=== PATIENT | male | born 1990 | race Caucasian/White ===

== ENCOUNTER → 2022-10-12 | Outpatient (CLI) | payer BC ==
[2022-10-12 11:27] LABS: Basophils # (auto) 0 10 ^3/uL (0-0.2); Basophils % (auto) 0.3 % (0.0-2.0); Eosinophils # (auto) 0.2 10 ^3/uL (0-0.8); Eosinophils % (auto) 2.6 % (0.0-7.0); Hemoglobin 15.9 g/dL (13.5-17.5); Lymphocytes # (auto) 2.7 10 ^3/uL (0.4-5.4); Mean Corpuscular Hemoglobin 29.8 pg (28.0-32.0); Mean Corpuscular Hgb Conc. 33.7 g/dL (32.0-36.0); Mean Corpuscular Volume 88.3 fL (80.0-100.0); Monocytes # (auto) 0.3 10 ^3/uL (0-1.3); Monocytes % (auto) 5.2 % (0.0-12.0); Neutrophils # (auto) 3.3 10 ^3/uL (1.6-8.6); Neutrophils % (auto) 49.9 % (37.0-80.0); Nucleated Red Blood Cells % 0.1 %; Red Blood Cells 5.32 10^6/uL (4.5-5.90); Red Cell Distribution Width 13.3 % (11.8-14.3); White Blood Cell 6.5 10^3/uL (4.4-10.8)
[2022-10-12 12:13] LABS: Alanine Aminotransferase 88 U/L (7-40); Albumin 4.5 g/dL (3.2-4.8); Alkaline Phosphatase 63 U/L (46-116); Anion Gap 6.7 (5-15); Aspartate Aminotransferase 38 U/L (13-40); Calcium 9.4 mg/dL (8.5-10.1); Carbon Dioxide 23.3 mmol/L (20-30); Chloride 105 mmol/L (98-107); Cholesterol 248 mg/dL (< 200); Glucose 271 mg/dL (74-106); Potassium 3.6 mmol/L (3.5-5.1); Sodium 135 mmol/L (136-145)
[2022-10-12 12:14] LABS: HDL Cholesterol 22 mg/dL (40-59)
[2022-10-12 12:17] LABS: Triglycerides 439 mg/dL (< 150)
[2022-10-12 12:18] LABS: BUN/Creatinine Ratio 6.7 (10.0-20.0); Blood Urea Nitrogen 6 mg/dL (9-23)
[2022-10-12 12:20] LABS: Bilirubin, Total 0.8 mg/dL (0.2-1.0)
[2022-10-12 12:36] LABS: Prostate Specific Antigen 0.27 ng/mL (0.0-4.0)
[2022-10-12 12:40] LABS: Free T4 (Free Thyroxine) 1.36 ng/dL (0.89-1.76)
[2022-10-12 12:41] LABS: Total Protein 7.6 g/dL (5.7-8.2)
== END | disposition home or self-care (01) ==
LOC: LAB 10:38
DX: E66.01 Morbid (severe) obesity due to excess calories (principal); R63.1 Polydipsia; R35.1 Nocturia
CPT/HCPCS: 36415; 80053; 80061; 83036; 84153; 84439; 84443; 85025

== ENCOUNTER 2023-09-20 11:47 | Emergency (ER) | payer BC ==
[~2023-09-20] VITALS: Ht 177.8 cm; Wt 121.9 kg
[2023-09-20 12:37] LABS: Basophils # (auto) 0 10 ^3/uL (0-0.2); Basophils % (auto) 0.6 % (0.0-2.0); Eosinophils # (auto) 0.2 10 ^3/uL (0-0.8); Eosinophils % (auto) 3.5 % (0.0-7.0); Hematocrit 49.4 % (41.0-53.0); Hemoglobin 17.3 g/dL (13.5-17.5); Lymphocytes # (auto) 2.4 10 ^3/uL (0.4-5.4); Lymphocytes % (auto) 36.7 % (10.0-50.0); Mean Corpuscular Hemoglobin 31.6 pg (28.0-32.0); Mean Corpuscular Volume 90.2 fL (80.0-100.0); Monocytes # (auto) 0.4 10 ^3/uL (0-1.3); Monocytes % (auto) 6.7 % (0.0-12.0); Neutrophils # (auto) 3.5 10 ^3/uL (1.6-8.6); Neutrophils % (auto) 52.5 % (37.0-80.0); Nucleated Red Blood Cells % 0.3 %; Red Blood Cells 5.47 10^6/uL (4.5-5.90); Red Cell Distribution Width 13.5 % (11.8-14.3); White Blood Cell 6.6 10^3/uL (4.4-10.8)
[2023-09-20] MEDS: ONDANSETRON ODT 4 MG TAB PO ONE (12:47)
[2023-09-20] MEDS: PANTOPRAZOLE 40 MG TAB PO ONE (12:47)
[2023-09-20 12:57] LABS: Alanine Aminotransferase 153 U/L (7-40); Albumin 4.4 g/dL (3.2-4.8); Alkaline Phosphatase 56 U/L (46-116); Anion Gap 8 (5-15); Aspartate Aminotransferase 64 U/L (13-40); BUN/Creatinine Ratio 9.6 (10.0-20.0); Blood Urea Nitrogen 8 mg/dL (9-23); Calcium 9.4 mg/dL (8.7-10.4); Carbon Dioxide 24 mmol/L (20-30); Chloride 107 mmol/L (98-107); Glucose 105 mg/dL (74-106); Lipase 73 U/L (12-53); Sodium 139 mmol/L (136-145)
[2023-09-20 12:58] LABS: Bilirubin, Total 0.4 mg/dL (0.2-1.0); Total Protein 7.9 g/dL (5.7-8.2)
[2023-09-20 13:30] LABS: Urine Bacteria None Seen /hpf (None Seen)
[2023-09-20 13:44] LABS: Urine Blood Negative /uL (Negative); Urine Clarity Clear (Clear); Urine Color Light-Yellow (Yellow); Urine Mucus FEW (None Seen); Urine Protein, UAD TRACE (Negative); Urine Specific Gravity 1.022 (1.001-1.035); Urine Urobilinogen Normal (Negative); Urine WBC <1 /hpf (0 - 3)
[2023-09-20] MEDS ORDERED: ZOFR4T PO (13:50)
[2023-09-20] MEDS ORDERED: PANT40TA2 PO (13:50)
[2023-09-20 14:10] VITALS: BP 145/93; PULSE 77; RESP 16; TEMP 98; O2SAT 98
== END 2023-09-20 14:12 | disposition home or self-care (01) ==
LOC: ER 11:47
DX: K21.9 Gastro-esophageal reflux disease without esophagitis (principal); R74.8 Abnormal levels of other serum enzymes; R16.1 Splenomegaly, not elsewhere classified; E11.9 Type 2 diabetes mellitus without complications; I10 Essential (primary) hypertension; F17.210 Nicotine dependence, cigarettes, uncomplicated; F12.90 Cannabis use, unspecified, uncomplicated
CPT/HCPCS: 36415; 74176; 80053; 81001; 83690; 85025; 99284; Q0162

== ENCOUNTER 2024-01-10 11:12 | Emergency (ER) | payer BC ==
[~2024-01-10] VITALS: Ht 180.3 cm; Wt 128.4 kg
[~2024-01-10 11:12] MED LIST: PANT40TA2 PO; ZOFR4T PO
--- NOTE | 2024-01-10 11:30 | ED.PDOC ---
History of Present Illness HPI Comments 33-year-old male presents with a chief complaint of flank pain and muscle pain x onset yesterday. Patient states that his pain originally started in his left shoulder, was sharp in nature, and radiates around his back to his right flank. Patient denies twisting or bending prior to onset of symptoms. Patient mentions that he has never had a kidney stone before in the past. Patient reports he takes medication for his DM and HTN and is compliant. No other symptoms or modifying factors present at this time. Time Seen by MD: 11:22 Reviewed Notes: Nurses Notes, Medications, Allergies Allergies: Coded Allergies: NO KNOWN ALLERGIES (Unverified , 09/20/23) Home Meds Active Scripts Hydrocodone-Acetaminophen (Hydrocodone Bitartrate/AC 5-325 mg) 1 Tab Tab, 1 TAB PO Q8HP PRN for 5 Days, #15 TAB Prov:CHRIS MENJIVAR MD 01/10/24 Ondansetron Odt 4MG Tab (ZOFRAN PO) 4 Mg Tb, 4 MG PO Q8HP PRN for 5 Days, #15 TAB ODT TAB-DISSOLVE IN MOUTH, THEN SWALLOW Prov:CHRIS MENJIVAR MD 09/20/23 Pantoprazole Sodium Sesquihydr (Protonix) 40 Mg Tab, 40 MG PO DAILY, #30 TAB Prov:CHRIS MENJIVAR MD 09/20/23 Information Source: Patient Mode of Arrival: Ambulatory Severity: Moderate Timing: Hours Duration: Since onset Prehospital treatment: None Past Medical History PAST MEDICAL HISTORY: DM, HTN Past Medical History (Other): Sleep Apnea Surgical History: Denies all surgeries Family History Family History: Reviewed,noncontributory to illness, Family hx of DM, Family hx of HTN Social History Smoker: Cigarettes Alcohol: Occasionally Drugs: Marijuana Lives In: Home Constitutional: denies: chills, diaphoresis, fatigue, fever, malaise, sweats, weakness, others EENTM: denies: blurred vision, double vision, ear bleeding, ear discharge, ear drainage, ear pain, ear ringing, eye pain, eye redness, hearing loss, mouth pain, mouth swelling, nasal discharge, nose bleeding, nose congestion, nose pain, photophobia, tearing, throat pain, throat swelling, voice changes, others Respiratory: denies: cough, hemoptysis, orthopnea, SOB at rest, shortness of breath, SOB with excertion, stridor, wheezing, others Cardiovascular: denies: chest pain, dizzy spells, diaphoresis, Dyspnea on exert ion, edema, irregular heart beat, left arm pain, lightheadedness, palpitations, PND, syncope, others Gastrointestinal: denies: abdomen distended, abdominal pain, blood streaked bowels, constipated, diarrhea, dysphagia, difficulty swallowing, hematemesis, melena, nausea, poor appetite, poor fluid intake, rectal bleeding, rectal pain, vomiting, others Genitourinary: reports: flank pain; denies: burning, dysuria, frequency, hematuria, incontinence, penile discharge, penile sore, pain, testicle pain, testicle swelling, urgency, others Neurological: denies: dizziness, fainting, headache, left sided numbness, left sided weakness, numbness, paresthesia, pre-existing deficit, right sided numbness, right sided weakness, seizure, speech problems, tingling, tremors, weakness, others Musculoskeletal: reports: muscle pain; denies: back pain, gout, joint pain, joint swelling, muscle stiffness, neck pain, others Integumetry: denies: bruises, change in color, change in hair/nails, dryness, laceration, lesions, lumps, rash, wounds, others Allergic/Immunocompromised: denies: Difficulty Healing, Frequent Infections, Hives, Itching, others Hematologic/Lymphatic: denies: anemia, blood clots, easy bleeding, easy br uising, swollen glands, others Endocrine: denies: excessive hunger, excessive sweating, excessive thirst, excessive urination, flushing, intolerance to cold, intolerance to heat, unexplained weight gain, unexplained weight loss, others Psychiatric: denies: anxiety, bipolar disorder, depression, hopeless, panic disorder, schizophrenia, sleepless, suicidal, others All Other Systems: Reviewed and Negative Physical Exam General Appearance: No Apparent Distress HEENT: Normal ENT Inspection, Pharynx Normal, TMs Normal Neck: Full Range of Motion, Non-Tender, Normal, Normal Inspection Respiratory: Chest Non-Tender, Lungs Clear, No Accessory Muscle Use, No Respiratory Distress, Normal Breath Sounds Cardiovascular: No Edema, No JVD, No Murmur, No Gallop, Normal Peripheral Pulses, Regular Rate/Rhythm Breast Exam: Deferred Gastrointestinal: No Organomegaly, Non Tender, No Pulsatile Mass, Normal Bowel Sounds, Soft Genitalia: Deferred Pelvic: Deferred Rectal: Deferred Extremities: No calf tenderness, Normal capillary refill, Normal inspection, Normal range of motion, Non-tender, No pedal edema Musculoskeletal : Apperance: Normal Neurologic: Alert, repair order clerk II-XII nml as Tested, No Motor Deficits, Normal Affect, Normal Mood, No Sensory Deficits Cerebellar Function: Normal Reflexes: Normal Skin: Dry, Normal Color, Warm Lymphatic: No Adenopathy Was a procedure done? Was a procedure done?: No Differential Dx Considerations may include: Kidney stones, appendicitis, UTI X-Ray, Labs, Meds, VS Vital Signs Date Time Temp Pulse Resp B/P (MAP) Pulse Ox O2 Delivery O2 Flow Rate FiO2 01/10/24 12:02 98.7 99 17 146/99 (115) 96 98.7 01/10/24 12:02 99 17 01/10/24 11:29 98.0 96 16 146/88 (107) 97 Lab Test 01/10/24 11:41 01/10/24 11:25 Range/Units White Blood Count 11.1 H 4.4-10.8 10^3/uL Red Blood Count 5.75 4.5-5.90 10^6/uL Hemoglobin 18.0 H 13.5-17.5 g/dL Hematocrit 51.8 41.0-53.0 % Mean Corpuscular Volume 90.0 80.0-100.0 fL Mean Corpuscular Hemoglobin 31.3 28.0-32.0 pg Mean Corpuscular Hemoglobin Concent 34.7 32.0-36.0 g/dL Red Cell Distribution Width 13.6 11.8-14.3 % Platelet Count 255 140-450 10^3/uL Mean Platelet Volume 8.2 6.9-10.8 fL Neutrophils (%) (Auto) 66.4 37.0-80.0 % Lymphocytes (%) (Auto) 25.0 10.0-50.0 % Monocytes (%) (Auto) 5.2 0.0-12.0 % Eosinophils (%) (Auto) 3.0 0.0-7.0 % Basophils (%) (Auto) 0.4 0.0-2.0 % Neutrophils # (Auto) 7.3 1.6-8.6 10 ^3/uL Lymphocytes # (Auto) 2.8 0.4-5.4 10 ^3/uL Monocytes # (Auto) 0.6 0-1.3 10 ^3/uL Eosinophils # (Auto) 0.3 0-0.8 10 ^3/uL Basophils # (Auto) 0 0-0.2 10 ^3/uL Nucleated Red Blood Cells 0.2 % Sodium Level 136 136-145 mmol/L Potassium Level 3.9 3.5-5.1 mmol/L Chloride Level 102 98-107 mmol/L Carbon Dioxide Level 28 20-31 mmol/L Anion Gap 6 5-15 Blood Urea Nitrogen 13 9-23 mg/dL Creatinine 1.09 0.700-1.30 mg/dL Glomerular Filtration Rate Calc 91 >90 mL/min BUN/Creatinine Ratio 11.9 10.0-20.0 Serum Glucose 232 H 74-106 mg/dL Calcium Level 11.1 H 8.7-10.4 mg/dL Urine Color Yellow Yellow Urine Clarity Clear Clear Urine pH 5.5 5.0-9.0 Urine Specific [place] 1.034 1.001-1.035 Urine Protein 1+ H Negative Urine Ketones Negative Negative Urine Blood Negative Negative /uL Urine Nitrite Negative Negative Urine Bilirubin Negative Negative Urine Urobilinogen Normal Negative mg/dL Urine Leukocyte Esterase Negative Negative /uL Urine RBC <1 0 - 3 /hpf Urine WBC 2 0 - 3 /hpf Urine Squamous Epithelial Cells None seen <5 /hpf Urine Bacteria None seen None Seen /hpf Urine Mucus Few None Seen Urine Glucose 3+ H Normal mg/dL Current Medications Medications (Trade) Dose Ordered Sig/Claudette Route Start Time Stop Time Status Last Admin Sodium Chloride 1,000 ml @ 1,000 mls/hr Q1H ONCE IVB 01/10/24 12:45 01/10/24 13:44 01/10/24 12:41 Ketorolac Tromethamine (Toradol Injection) 30 mg ONCE ONCE IV 01/10/24 12:45 01/10/24 12:46 DC 01/10/24 12:51 Abdomen/Pelvis CT Scan Impression: 1. Hepatic steatosis. 2. Hazy/adeline appearance of the central mesentery with scattered mesenteric lymph nodes. These findings can be seen with mesenteric panniculitis versus sclerosing mesenteritis. The CBC shows an elevated white blood cell count of 11.1 The rest of the CBC is within normal limits At this time, the patient has a urine test which is negative The patient was given ketorolac 30 mg IV push The patient was given an IV Hep-Lock and was given a normal saline bolus The patient was being discharged The patient will return to the emergency department's condition worsens. Images Reviewed?: Images reviewed and evaluated by me Time of 1ST Reevaluation: 11:52 Reevaluation 1ST: Unchanged Patient Education/Counseling: Diagnosis, Treatment, Prognosis, Need For Follow Up Family Education/Counseling: No Family Present Departure 1 Departure Time of Disposition: 13:08 Impression: Primary Impression: Musculoskeletal pain Disposition: 01 HOME / SELF CARE / HOMELESS Condition: Fair e-Prescriptions Hydrocodone-Acetaminophen (Hydrocodone Bitartrate/AC 5-325 mg) 1 Tab Tab 1 TAB PO Q8HP PRN for 5 Days, #15 TAB Prov: CHRIS MENJIVAR MD 01/10/24 Discharged With: Self Critical Care Note Critical Care Time?: No Stability Stability form required: No Heart Score Heart Score: Heart Score Response (Comments) Value History N/A 0 EKG N/A 0 Age N/A 0 Risk Factors N/A 0 Troponin N/A 0 Total 0 I personally scribed for CHRIS MENJIVAR MD ([email or web address]) on 01/10/24 at 11:30. Electronically submitted by Anam Reyes ([email or web address]). I personally scribed for CHRIS MENJIVAR MD ([email or web address]) on 01/10/24 at 12:19. Electronically submitted by Anam Reyes ([email or web address]). CHRIS MENJIVAR MD Jan 10, 2024 11:30
[2024-01-10 11:51] LABS: Basophils # (auto) 0 10 ^3/uL (0-0.2); Eosinophils # (auto) 0.3 10 ^3/uL (0-0.8); Monocytes # (auto) 0.6 10 ^3/uL (0-1.3)
[2024-01-10 11:53] LABS: Basophils % (auto) 0.4 % (0.0-2.0); Hematocrit 51.8 % (41.0-53.0); Lymphocytes # (auto) 2.8 10 ^3/uL (0.4-5.4); Mean Corpuscular Hemoglobin 31.3 pg (28.0-32.0); Mean Corpuscular Hgb Conc. 34.7 g/dL (32.0-36.0); Monocytes % (auto) 5.2 % (0.0-12.0); Neutrophils # (auto) 7.3 10 ^3/uL (1.6-8.6); Neutrophils % (auto) 66.4 % (37.0-80.0); Nucleated Red Blood Cells % 0.2 %; Platelet Count (auto) 255 10^3/uL (140-450); Red Blood Cells 5.75 10^6/uL (4.5-5.90); Red Cell Distribution Width 13.6 % (11.8-14.3); White Blood Cell 11.1 10^3/uL (4.4-10.8)
--- NOTE | 2024-01-10 11:58 | DVH ---
CT ABDOMEN AND PELVIS WITHOUT CONTRAST CLINICAL HISTORY: right flank pain TECHNIQUE: Multiple contiguous axial images of the abdomen and pelvis without intravenous contrast. The images were reformatted degenerate coronal and sagittal reconstructions. All CT scans at this medical facility are performed using dose modulation techniques as appropriate t o a performed exam including the following:Automated exposure control was utilized; adjustment of the MA and/or KV according to patient size; and use of iterative reconstruction technique. Radiation Dose Information: CT Dose: CTDI volume is 24.34 mGy. Dose-length product is 1655.71 mGy*cm Comparison: CT CT AB PEL WO CON-NO ORAL OR IV on DOS: 09/20/23 FINDINGS: Evaluation of the abdomen and pelvis is limited without intravenous contrast. There is diffuse fatty infiltration of the liver. The gallbladder, pancreas, kidneys, adrenal glan ds, and spleen appear within normal limits. There is hazy appearance of the central mesentery with scattered mesenteric lymph nodes. There is no significant retroperitoneal lymphadenopathy. There is no free fluid or free air. The stomach grossly appears unremarkable. The small and large bowel loops demonstrate normal caliber . The abdominal aorta and IVC appear within normal limits. The bladder appears unremarkable for the degree of distention. Pelvic organ appears within normal rodrigues its. There is no gross evidence of a pelvic mass. There is no free fluid collection. Lung bases are clear. There is no acute osseous abnormality. IMPRESSION: 1. Hepatic steatosis. 2. Hazy/adeline appearance of the central mesentery with scattered mesenteric lymph nodes. These findin gs can be seen with mesenteric panniculitis versus sclerosing mesenteritis. HS:Y
[2024-01-10 11:59] LABS: Chloride 102 mmol/L (98-107); Potassium 3.9 mmol/L (3.5-5.1); Sodium 136 mmol/L (136-145)
[2024-01-10 12:00] LABS: Anion Gap 6 (5-15); Carbon Dioxide 28 mmol/L (20-31)
[2024-01-10 12:05] LABS: BUN/Creatinine Ratio 11.9 (10.0-20.0); Blood Urea Nitrogen 13 mg/dL (9-23)
[2024-01-10 12:08] LABS: Calcium 11.1 mg/dL (8.7-10.4); Glucose 232 mg/dL (74-106)
[2024-01-10 12:22] LABS: Urine Bacteria None Seen /hpf (None Seen)
[2024-01-10 12:39] LABS: Urine Blood Negative /uL (Negative); Urine Clarity Clear (Clear); Urine Color Yellow (Yellow); Urine Mucus FEW (None Seen); Urine Protein, UAD 1+ (Negative); Urine Specific Gravity 1.034 (1.001-1.035); Urine Urobilinogen Normal (Negative); Urine WBC 2 /hpf (0 - 3); Urine pH 5.5 (5.0-9.0)
[2024-01-10] MEDS: SODIUM CHLORIDE 0.9% 1,000 ML IVB ONE (12:41)
[2024-01-10] MEDS: KETOROLAC TROMETH 30 MG/ML 1ML VIAL IV ONE (12:51)
[2024-01-10] MEDS ORDERED: HYDR-4902 PO (13:06)
[2024-01-10 13:23] VITALS: BP 147/94; PULSE 89; RESP 16; TEMP 97.9; O2SAT 95
== END 2024-01-10 13:30 | disposition home or self-care (01) ==
LOC: ER 11:12
DX: R10.9 Unspecified abdominal pain (principal); M79.10 Myalgia, unspecified site; I10 Essential (primary) hypertension; E11.9 Type 2 diabetes mellitus without complications; F17.210 Nicotine dependence, cigarettes, uncomplicated; F15.90 Other stimulant use, unspecified, uncomplicated; Z79.899 Other long term (current) drug therapy
CPT/HCPCS: 36415; 74176; 80048; 81001; 85025; 96361; 96374; 99285; J1885; J7030

== ENCOUNTER 2024-01-20 21:02 | Inpatient (IN) | payer BC ==
[~2024-01-20] VITALS: Ht 180.3 cm; Wt 121.7 kg
[~2024-01-20 21:02] MED LIST changes: +HYDR-4902 PO
[2024-01-20 21:32] LABS: Urine Bacteria None Seen /hpf (None Seen)
--- NOTE | 2024-01-20 21:57 | ED.PDOC ---
History of Present Illness HPI Comments 33 y/o M, with a Hx of uncontrolled HTN and obesity, presents with c/o abdominal pain, headache, and HTN, today. Patient is a poor historian and endorses on having unprovoked onset of constant abdominal pain for the past "few days," with additional onset of headache, today. Upon arrival to ED, patient was found hypertensive at a blood pressure of 175/114, with patient reporting not taking any medications for his blood pressure, currently. Patient denies any recent injuries, sick contact, travel, substance use/exposure, or spoiled food intake. He also reports being here 1x week ago for unknown reason in addition to unknown Dx. He denies having any nausea, vomiting, dizziness, vision or speech changes, fever, chills, or other associated symptoms or modifiers at this time. Chief Complaint: Abdominal Pain Time Seen by MD: 21:10 Primary Care Provider: FAHAD Reviewed Notes: Nurses Notes, Medications, Allergies Allergies: Coded Allergies: NO KNOWN ALLERGIES (Unverified , 09/20/23) Home Meds Active Scripts Hydrocodone-Acetaminophen (Hydrocodone Bitartrate/AC 5-325 mg) 1 Tab Tab, 1 TAB PO Q8HP PRN for 5 Days, #15 TAB Prov:CHRIS MENJIVAR MD 01/10/24 Ondansetron Odt 4MG Tab (ZOFRAN PO) 4 Mg Tb, 4 MG PO Q8HP PRN for 5 Days, #15 TAB ODT TAB-DISSOLVE IN MOUTH, THEN SWALLOW Prov:CHRIS MENJIVAR MD 09/20/23 Pantoprazole Sodium Sesquihydr (Protonix) 40 Mg Tab, 40 MG PO DAILY, #30 TAB Prov:CHRIS MENJIVAR MD 09/20/23 Information Source: Patient Mode of Arrival: Ambulatory Severity: Moderate Timing: Days Duration: Since onset Prehospital treatment: None Past Medical History PAST MEDICAL HISTORY: DM, HTN Surgical History: Denies all surgeries Family History Family History: Reviewed,noncontributory to illness, Family hx of DM, Family hx of HTN Social History Smoker: Cigarettes Alcohol: Occasionally Drugs: Marijuana Lives In: Home Constitutional: reports: weakness; denies: chills, diaphoresis, fatigue, fever, malaise, sweats, others EENTM: denies: blurred vision, double vision, ear bleeding, ear discharge, ear drainage, ear pain, ear ringing, eye pain, eye redness, hearing loss, mouth pain, mouth swelling, nasal discharge, nose bleeding, nose congestion, nose pain, photophobia, tearing, throat pain, throat swelling, voice changes, others Respiratory: denies: cough, hemoptysis, orthopnea, SOB at rest, shortness of breath, SOB with excertion, stridor, wheezing, others Cardiovascular: denies: chest pain, dizzy spells, diaphoresis, Dyspnea on exertion, edema, irregular heart beat, left arm pain, lightheadedness, palpitations, PND, syncope, others Gastrointestinal: reports: abdominal pain; denies: abdomen distended, blood streaked bowels, constipated, diarrhea, dysphagia, difficulty swallowing, hemate mesis, melena, nausea, poor appetite, poor fluid intake, rectal bleeding, rectal pain, vomiting, others Genitourinary: denies: burning, dysuria, flank pain, frequency, hematuria, incontinence, penile discharge, penile sore, pain, testicle pain, testicle swelling, urgency, others Neurological: reports: dizziness, headache; denies: fainting, left sided numbness, left sided weakness, numbness, paresthesia, pre-existing deficit, right sided numbness, right sided weakness, seizure, speech problems, tingling, tremors, weakness, others Musculoskeletal: denies: back pain, gout, joint pain, joint swelling, muscle pain, muscle stiffness, neck pain, others Integumetry: denies: bruises, change in color, change in hair/nails, dryness, laceration, lesions, lumps, rash, wounds, others Allergic/Immunocompromised: denies: Difficulty Healing, Frequent Infections, Hives, Itching, others Hematologic/Lymphatic: denies: anemia, blood clots, easy bleeding, easy bruising, swollen glands, others Endocrine: denies: excessive hunger, excessive sweating, excessive thirst, excessive urination, flushing, intolerance to cold, intolerance to heat, unexplained weight gain, unexplained weight loss, others Psychiatric: denies: anxiety, bipolar disorder, depression, hopeless, panic disorder, schizophrenia, sleepless, suicidal, others Physical Exam General Appearance: Moderate Distress (Due to belly pain concerns.), Obese HEENT: Normal ENT Inspection, Pharynx Normal, TMs Normal Neck: Full Range of Motion, Non-Tender, Normal, Normal Inspection Respiratory: Chest Non-Tender, Lungs Clear, No Accessory Muscle Use, No Respiratory Distress, Normal Breath Sounds Cardiovascular: No Edema, No JVD, No Murmur, No Gallop, Normal Peripheral Pulses, Regular Rate/Rhythm Breast Exam: Deferred Gastrointestinal: Other (Diffuse epigastric tenderness to palpation bilaterally. Abdomen was moderately rigid. No pulsatile masses. No signs of trauma.) Genitalia: Deferred Pelvic: Deferred Rectal: Deferred Extremities: No calf tenderness, Normal capillary refill, Normal inspection, Normal range of motion, Non-tender, No pedal edema Neurologic: Alert, No Motor Deficits, Normal Affect, Normal Mood, No Sensory Deficits Cerebellar Function: Normal Reflexes: Normal Skin: Dry, Normal Color, Warm Lymphatic: No Adenopathy Was a procedure done? Was a procedure done?: No Differential Dx Considerations may include: Hypertensive urgency, pancreatitis, SBO, hepatic steatosis, gastroenteritis, UTI X-Ray, Labs, Meds, VS Vital Signs Date Time Temp Pulse Resp B/P (MAP) Pulse Ox O2 Delivery O2 Flow Rate FiO2 01/21/24 00:44 79 18 143/93 (110) 99 01/21/24 00:37 91 01/20/24 21:05 98.3 91 18 175/114 (134) 96 Lab Test 01/20/24 21:27 01/20/24 21:18 Range/Units White Blood Count 7.1 4.4-10.8 10^3/uL Red Blood Count 5.26 4.5-5.90 10^6/uL Hemoglobin 16.3 13.5-17.5 g/dL Hematocrit 48.1 41.0-53.0 % Mean Corpuscular Volume 91.5 80.0-100.0 fL Mean Corpuscular Hemoglobin 31.1 28.0-32.0 pg Mean Corpuscular Hemoglobin Concent 33.9 32.0-36.0 g/dL Red Cell Distribution Width 13.7 11.8-14.3 % Platelet Count 218 140-450 10^3/uL Mean Platelet Volume 8.3 6.9-10.8 fL Neutrophils (%) (Auto) 54.9 37.0-80.0 % Lymphocytes (%) (Auto) 32.8 10.0-50.0 % Monocytes (%) (Auto) 7.6 0.0-12.0 % Eosinophils (%) (Auto) 4.3 0.0-7.0 % Basophils (%) (Auto) 0.4 0.0-2.0 % Neutrophils # (Auto) 3.9 1.6-8.6 10 ^3/uL Lymphocytes # (Auto) 2.3 0.4-5.4 10 ^3/uL Monocytes # (Auto) 0.5 0-1.3 10 ^3/uL Eosinophils # (Auto) 0.3 0-0.8 10 ^3/uL Basophils # (Auto) 0 0-0.2 10 ^3/uL Nucleated Red Blood Cells 0.1 % Sodium Level 139 136-145 mmol/L Potassium Level 3.7 3.5-5.1 mmol/L Chloride Level 103 98-107 mmol/L Carbon Dioxide Level 28 20-31 mmol/L Anion Gap 8 5-15 Blood Urea Nitrogen 14 9-23 mg/dL Creatinine 1.04 0.700-1.30 mg/dL Glomerular Filtration Rate Calc 97 >90 mL/min BUN/Creatinine Ratio 13.5 10.0-20.0 Serum Glucose 178 H 74-106 mg/dL Lactic Acid Level 1.2 0.4-2.0 mmol/L Calcium Level 10.0 8.7-10.4 mg/dL Total Bilirubin 0.3 0.2-1.0 mg/dL Aspartate Amino Transferase (AST) 101 H 13-40 U/L Alanine Aminotransferase (ALT) 238 H 7-40 U/L Alkaline Phosphatase 79 46-116 U/L Troponin I High Sensitivity < 3 L </=54 ng/L Total Protein 7.8 5.7-8.2 g/dL Albumin 4.7 3.2-4.8 g/dL Lipase 110 H 12-53 U/L Urine Color Yellow Yellow Urine Clarity Clear Clear Urine pH 5.5 5.0-9.0 Urine Specific [place] 1.039 H 1.001-1.035 Urine Protein 1+ H Negative Urine Ketones Trace Negative Urine Blood Negative Negative /uL Urine Nitrite Negative Negative Urine Bilirubin Negative Negative Urine Urobilinogen Normal Negative mg/dL Urine Leukocyte Esterase Negative Negative /uL Urine RBC 1 0 - 3 /hpf Urine WBC 1 0 - 3 /hpf Urine Squamous Epithelial Cells None seen <5 /hpf Urine Calcium Oxalate Crystals Few None Seen Urine Bacteria None seen None Seen /hpf Urine Mucus Few None Seen Urine Glucose 1+ H Normal mg/dL X-Ray, Labs, Meds, VS Comment All studies performed the ED today were evaluated by me personally. EKG revealed a sinus rhythm with a rate of 87, borderline T-wave abnormalities and borderline ST elevation on lateral leads. GA interval of 168 and QT interval of 352. Troponins were unremarkable for any acute cardiac event. Laboratories st udies remarkable for a significant elevated lipase national sales representative of pancreatitis. CT of abdomen and pelvis showed a mesenteric adenitis as well as hepatomegaly and splenomegaly. Patient will be admitted for his pancreatitis concerns as well as cardiac evaluations due to his currently uncontrolled hypertension. Time of 1ST Reevaluation: 00:14 Reevaluation 1ST: Improved Consultation: PCP Patient Education/Counseling: Diagnosis, Treatment Family Education/Counseling: Diagnosis, Treatment, No Family Present Departure 1 Departure Time of Disposition: 00:15 Impression: Primary Impression: Acute pancreatitis Additional Impressions: Mesenteric adenitis Hypertensive urgency Hepatomegaly Splenomegaly Disposition: 09 ADMITTED INPATIENT Condition: Stable Discharged With: Self, Friend Critical Care Note Critical Care Time?: No Stability Stability form required: No Heart Score Heart Score: Heart Score Response (Comments) Value History Slightly Suspicious 0 EKG Repolarization Disturb 1 Age <45 0 Risk Factors 1 or 2 risk factors 1 Troponin N/A 0 Total 2 I personally scribed for ANTHONY CHEN PAC ([email or web address]) on 01/20/24 at 21:57. Electronically submitted by Noe Akers ([email or web address]). ANTHONY CHEN PAC Jan 20, 2024 21:57
[2024-01-20 22:01] LABS: Urine Blood Negative /uL (Negative); Urine Clarity Clear (Clear); Urine Color Yellow (Yellow); Urine Mucus FEW (None Seen); Urine Protein, UAD 1+ (Negative); Urine Specific Gravity 1.039 (1.001-1.035); Urine Urobilinogen Normal (Negative); Urine WBC 1 /hpf (0 - 3); Urine pH 5.5 (5.0-9.0)
[2024-01-20 22:13] LABS: Basophils # (auto) 0 10 ^3/uL (0-0.2); Basophils % (auto) 0.4 % (0.0-2.0); Eosinophils # (auto) 0.3 10 ^3/uL (0-0.8); Eosinophils % (auto) 4.3 % (0.0-7.0); Hematocrit 48.1 % (41.0-53.0); Hemoglobin 16.3 g/dL (13.5-17.5); Lymphocytes # (auto) 2.3 10 ^3/uL (0.4-5.4); Lymphocytes % (auto) 32.8 % (10.0-50.0); Mean Corpuscular Hemoglobin 31.1 pg (28.0-32.0); Mean Corpuscular Hgb Conc. 33.9 g/dL (32.0-36.0); Mean Corpuscular Volume 91.5 fL (80.0-100.0); Monocytes # (auto) 0.5 10 ^3/uL (0-1.3); Monocytes % (auto) 7.6 % (0.0-12.0); Neutrophils # (auto) 3.9 10 ^3/uL (1.6-8.6); Neutrophils % (auto) 54.9 % (37.0-80.0); Nucleated Red Blood Cells % 0.1 %; Platelet Count (auto) 218 10^3/uL (140-450); Red Blood Cells 5.26 10^6/uL (4.5-5.90); Red Cell Distribution Width 13.7 % (11.8-14.3); White Blood Cell 7.1 10^3/uL (4.4-10.8)
[2024-01-20 22:29] LABS: Albumin 4.7 g/dL (3.2-4.8); Alkaline Phosphatase 79 U/L (46-116); Anion Gap 8 (5-15); BUN/Creatinine Ratio 13.5 (10.0-20.0); Bilirubin, Total 0.3 mg/dL (0.2-1.0); Blood Urea Nitrogen 14 mg/dL (9-23); Carbon Dioxide 28 mmol/L (20-31); Chloride 103 mmol/L (98-107); Potassium 3.7 mmol/L (3.5-5.1); Sodium 139 mmol/L (136-145); Total Protein 7.8 g/dL (5.7-8.2)
[2024-01-20 22:31] LABS: Alanine Aminotransferase 238 U/L (7-40); Aspartate Aminotransferase 101 U/L (13-40); Glucose 178 mg/dL (74-106); Lipase 110 U/L (12-53)
--- NOTE | 2024-01-20 23:01 | DVH ---
CLINICAL HISTORY: Diffuse abdominal pain TECHNIQUE: CT of the abdomen and pelvis was performed without intravenous contrast. This exam was per formed according to our departmental dose optimization program. Up-to-date CT equipment and radiation dose reduction techniques are utilized as appropriate. WID: COMPARISON: CT CT AB PEL WO CON-NO ORAL OR IV on DOS: 01/10/24 FINDINGS: Lower Thorax: Sub 5 mm right lower lobe nodule along the right major fissure. Normal-sized heart Liver and Biliary system: Hepatomegaly measuring 24 cm craniocaudal, with moderate hepatic steatosis. Otherwise unremarkable Spleen: Splenomegaly. Adrenal Glands and Kidneys: Pancreas and Retroperitoneum: Unremarkable. Aorta and Major Vessels: Unremarkable. Bowel, Mesentery and Peritoneal space: Mildly enlarged central mesenteric lymph nodes. Mild soft tiss ue stranding about the central mesentery. Normal appendix. Normal caliber small and large bowel. Ther e is no free air or fluid collection. Pelvis: Unremarkable. Abdominal wall and Osseous Structures: Mild lower thoracic and lumbar spondylosis. No destructive oss eous lesion. IMPRESSION: 1. Mild soft tissue stranding of the central mesentery with mildly enlarged central mesenteric lymph nodes which could reflect mesenteric panniculitis. 2. Hepatomegaly with moderate hepatic steatosis. 3. Splenomegaly
[2024-01-21] MEDS ORDERED: cloNIDine HCL 0.1 MG TAB PO PRN (03:00)
[2024-01-21] MEDS ORDERED: ACETAMINOPHEN 325 MG TAB PO PRN (03:00)
[2024-01-21] MEDS ORDERED: DEXTROSE (50%) 50ML SYRG IV PRN (03:00)
[2024-01-21] MEDS ORDERED: DOCUSATE SOD 100 MG CAP PO PRN (03:00)
--- NOTE | 2024-01-21 03:44 | DVHHP2 ---
History of Present Illness Reason for Visit: Acute pancreatitis History of Present Illness The patient is a 33-year-old male morbidly obese with past medical history of diabetes mellitus and hypertension who presented to [facility] ED with complaint of abdominal pain. Patient reports symptoms progressively get wor se with constant abdominal pain, rating 7/10 numeric scale, associated headache, getting worse that prompted this visit. Patient was seen and evaluated in the ED hypertensive, blood pressure 175/114 trending down to 143/93, denied taking any medication for blood pressure, heart rate 86, temperature 98.3 F, O2 saturation 99% on room air. Laboratory data shows WBC 7.1, platelets 218, sodium 139, potassium 3.7, BUN 14, creatinine 1.04, glucose 178, AST 101, ALT 238, troponin 3, lipase 110. Abdomen/pelvis CT revealing splenomegaly, hepatomegaly with moderate hepatic steatosis, mild soft tissue stranding of the central mesentery with mildly enlarged central mesenteric lymph nodes which could reflect mesenteric pancreatitis. Patient was given IV Dilaudid 1 mg x 1, given IV fluid, please see medication orders section in the computer. On my assessment, patient denied chest pain, no headache, no dizziness, no diaphoresis, no shortness of breath, no nausea, no vomiting, no fever, no chills. Patient was admitted for further evaluation and medical management. Past Medical History DM, HTN Past Surgical History Denies all surgeries Family History Reviewed, noncontributory to the management of this case. Past Social History Patient lives at home, smokes cigarettes, drinks alcohol occasionally, uses marijuana. Review of Systems Constitutional: Yes: Weakness; No: Fever, Chills, Sweats, Malaise, Other Eyes: No: Pain, Vision change, Conjunctivae inflammation, Eyelid inflammation, Other, Redness ENT: No: Ear pain, Ear discharge, Nose pain, Nose discharge, Nose congestion, Mouth pain, Mouth swelling, Throat pain, Throat swelling, Other Respiratory: No: Cough, Dry, Shortness of breath, SOB with excertion, Wheezing, Hemoptysis, Pleuritic Pain, Sputum, Wheezing, Other Cardiovascular: No: Chest Pain, Palpitations, Orthopnea, Paroxysmal Noc. Dyspnea, Edema, Lt Headedness, Other Gastrointestinal: Abdominal Pain; No: Nausea, Vomiting, Diarrhea, Constipation, Melena, Hematochezia, Other Genitourinary: No Dysuria, No Frequency, No Incontinence, No Hematuria, No Retention, No Other Musculoskeletal: No: other, neck pain, shoulder pain, arm pain, back pain, hand pain, leg pain, foot pain Skin: No: Rash, Lesions, Jaundice, Bruising, Other Neurological: Other (Headache, dizziness.); No: Weakness, Numbness, Incoordination, Change in speech, Confusion, Seizures Allergies: Coded Allergies: NO KNOWN ALLERGIES (Unverified , 09/20/23) Medications Current Medications Medications Dose Ordered Sig/Claudette Route Start Time Stop Time Status Last Admin Dose Admin Hydromorphone HCl 1 mg Q4HPRN PRN IV 01/21/24 03:00 Clonidine HCl 0.1 mg Q4HP PRN PO 01/21/24 03:00 Metoprolol Tartrate 25 mg BID PO 01/21/24 10:00 Ibuprofen 600 mg Q6HP PRN PO 01/21/24 03:00 UNV Diagnostic Test (Pha) 1 strip ACHS 01/21/24 07:00 Insulin Human Regular HS SC 01/21/24 22:00 Insulin Human Regular AC SC 01/21/24 07:00 Dextrose 50 ml UD PRN IV 01/21/24 03:00 Sodium Chloride 1,000 ml @ 120 mls/hr Q8H20M IV 01/21/24 03:00 Acetaminophen/ Hydrocodone Bitart 1 tab Q4HP PRN PO 01/21/24 03:00 Ondansetron HCl 4 mg Q4HP PRN IV 01/21/24 03:00 Docusate Sodium 100 mg BIDPRN PRN PO 01/21/24 03:00 Acetaminophen 650 mg Q6HP PRN PO 01/21/24 03:00 Pantoprazole Sodium 40 mg DAILY IV 01/21/24 10:00 Exam Vital Signs Vital Signs Date Time Temp Pulse Resp B/P (MAP) Pulse Ox O2 Delivery O2 Flow Rate FiO2 01/21/24 01:54 87 01/21/24 00:44 18 143/93 (110) 99 01/20/24 21:05 98.3 General Appearance: Alert, Oriented X3, Cooperative, No acute distress HEENT: Atraumatic, PERRLA, EOMI, Mucous membr. moist/pink Respiratory: Clear to auscultation, Normal air movement Cardiovascular: Regular rate, Normal S1, Normal S2, No murmurs Abdominal: Normal bowel sounds, Soft, No hepatospenomegaly, No masses, Other (Reports tenderness) Extremities: No clubbing, No cyanosis, No edema, Normal pulses, No tenderness/swelling Skin: No rashes, No breakdown, No significant lesion Neuro: Normal gait, Normal speech, Strength at 5/5 X4 ext, Normal tone, Sensation intact, Cranial nerves 3-12 NL, Reflexes 2+ Psych/Mental Status: Mental status NL, Mood NL Labs/Xrays Labs Test 01/20/24 21:27 01/20/24 21:18 Range/Units White Blood Count 7.1 4.4-10.8 10^3/uL Red Blood Count 5.26 4.5-5.90 10^6/uL Hemoglobin 16.3 13.5-17.5 g/dL Hematocrit 48.1 41.0-53.0 % Mean Corpuscular Volume 91.5 80.0-100.0 fL Mean Corpuscular Hemoglobin 31.1 28.0-32.0 pg Mean Corpuscular Hemoglobin Concent 33.9 32.0-36.0 g/dL Red Cell Distribution Width 13.7 11.8-14.3 % Platelet Count 218 140-450 10^3/uL Mean Platelet Volume 8.3 6.9-10.8 fL Neutrophils (%) (Auto) 54.9 37.0-80.0 % Lymphocytes (%) (Auto) 32.8 10.0-50.0 % Monocytes (%) (Auto) 7.6 0.0-12.0 % Eosinophils (%) (Auto) 4.3 0.0-7.0 % Basophils (%) (Auto) 0.4 0.0-2.0 % Neutrophils # (Auto) 3.9 1.6-8.6 10 ^3/uL Lymphocytes # (Auto) 2.3 0.4-5.4 10 ^3/uL Monocytes # (Auto) 0.5 0-1.3 10 ^3/uL Eosinophils # (Auto) 0.3 0-0.8 10 ^3/uL Basophils # (Auto) 0 0-0.2 10 ^3/uL Nucleated Red Blood Cells 0.1 % Sodium Level 139 136-145 mmol/L Potassium Level 3.7 3.5-5.1 mmol/L Chloride Level 103 98-107 mmol/L Carbon Dioxide Level 28 20-31 mmol/L Anion Gap 8 5-15 Blood Urea Nitrogen 14 9-23 mg/dL Creatinine 1.04 0.700-1.30 mg/dL Glomerular Filtration Rate Calc 97 >90 mL/min BUN/Creatinine Ratio 13.5 10.0-20.0 Serum Glucose 178 H 74-106 mg/dL Lactic Acid Level 1.2 0.4-2.0 mmol/L Calcium Level 10.0 8.7-10.4 mg/dL Total Bilirubin 0.3 0.2-1.0 mg/dL Aspartate Amino Transferase (AST) 101 H 13-40 U/L Alanine Aminotransferase (ALT) 238 H 7-40 U/L Alkaline Phosphatase 79 46-116 U/L Troponin I High Sensitivity < 3 L </=54 ng/L Total Protein 7.8 5.7-8.2 g/dL Albumin 4.7 3.2-4.8 g/dL Lipase 110 H 12-53 U/L Urine Color Yellow Yellow Urine Clarity Clear Clear Urine pH 5.5 5.0-9.0 Urine Specific [place] 1.039 H 1.001-1.035 Urine Protein 1+ H Negative Urine Ketones Trace Negative Urine Blood Negative Negative /uL Urine Nitrite Negative Negative Urine Bilirubin Negative Negative Urine Urobilinogen Normal Negative mg/dL Urine Leukocyte Esterase Negative Negative /uL Urine RBC 1 0 - 3 /hpf Urine WBC 1 0 - 3 /hpf Urine Squamous Epithelial Cells None seen <5 /hpf Urine Calcium Oxalate Crystals Few None Seen Urine Bacteria None seen None Seen /hpf Urine Mucus Few None Seen Urine Glucose 1+ H Normal mg/dL [id number] UNIT: [id number] : 1990 LOC: ER ROOM / BED: / AGE / SEX: 33 / M ADM STATUS: REG ER SERVICE 17 ORDERING PHYSICIAN: ANTHONY CHEN PAC PROCEDURE(s): ABPL - CT AB PEL WO CON-NO ORAL OR IV REASON: Diffuse abdominal pain ORDER NUMBER(s): [id number], ACCESSION NUMBER(s): [id number] CLINICAL HISTORY: Diffuse abdominal pain TECHNIQUE: CT of the abdomen and pelvis was performed without intravenous contrast. This exam was performed according to our departmental dose optimization program. Up-to-date CT equipment and radiation dose reduction techniques are utilized as appropriate. WID: COMPARISON: CT CT AB PEL WO CON-NO ORAL OR IV on DOS: 01/10/24 FINDINGS: Lower Thorax: Sub 5 mm right lower lobe nodule along the right major fissure. Normal-sized heart Liver and Biliary system: Hepatomegaly measuring 24 cm craniocaudal, with moderate hepatic steatosis. Otherwise unremarkable Spleen: Splenomegaly. Adrenal Glands and Kidneys: Pancreas and Retroperitoneum: Unremarkable. Aorta and Major Vessels: Unremarkable. Bowel, Mesentery and Peritoneal space: Mildly enlarged central mesenteric lymph nodes. Mild soft tissue stranding about the central mesentery. Normal appendix. Normal caliber small and large bowel. There is no free air or fluid collection. Pelvis: Unremarkable. Abdominal wall and Osseous Structures: Mild lower thoracic and lumbar spondylosis. No destructive osseous lesion. IMPRESSION: 1. Mild soft tissue stranding of the central mesentery with mildly enlarged central mesenteric lymph nodes which could reflect mesenteric panniculitis. 2. Hepatomegaly with moderate hepatic steatosis. 3. Splenomegaly Assessment/Plan Assessment/Plan Acute pancreatitis Mesenteric adenitis Hypertensive urgency Hepatomegaly Splenomegaly Acute abdominal pain Elevated liver enzymes Plan 1. Admit to med surge unit 2. Breathing treatment 3. Pain control management 4. Management of fluids and electrolytes 5. Consultation for hospitalist 6. Diagnostic tests abdomen/pelvis CT 7. DVT prophylaxis on SCDs 8. Repeat labs CBC, CMP in a.m. 9. Continue with current medical management 10. Treatment plan discussed with patient and RN. Patient verbalized understanding. Plan discussed with: Patient, Other (RN) My Orders Orders - FREDDY EDWARDS DNP Procedure Category Date Status Time Complete Blood Count LAB 01/21/24 Logged 04:00 Comprehensive LAB 01/21/24 Logged Metabolic Panel 04:00 Hydromorphone PHA 01/21/24 In Process Injection (Dilaudid 03:00 Clonidine Hcl Tablet PHA 01/21/24 In Process (Catapres Tablet) 03:00 Metoprolol Tartrate PHA 01/21/24 In Process Tablet (Lopressor Ta 10:00 * Gi D[facility] Head Wet Process CONS 01/21/24 Transmitted 02:54 Ibuprofen Tablet PHA 01/21/24 Pending (Motrin Tablet) 03:00 Consistent DIET 01/21/24 Transmitted Carb(Ccho)Diabetes Breakfast Glucose Blood PHA 01/21/24 In Process (Accu-Chek Comfort 07:00 Insulin R (Human) PHA 01/21/24 In Process (Insulin R) 22:00 Insulin R (Human) PHA 01/21/24 In Process (Insulin R) 07:00 Dextrose 50% Syringe PHA 01/21/24 In Process 03:00 Allergies SUSSY 01/21/24 In Process 02:54 Code Status CODE 01/21/24 Transmitted 02:54 Sodium Chloride 0.9% PHA 01/21/24 In Process 03:00 Oxygen Per Hour RT 01/21/24 Transmitted 02:54 Hydrocodone-Acet PHA 01/21/24 In Process 5/325mg Tab ([place] 03:00 Ondansetron Hcl PHA 01/21/24 In Process (Zofran) 03:00 Docusate Sodium PHA 01/21/24 In Process Capsule (Colace 03:00 Complete Blood Count LAB 01/22/24 Verified 04:00 Comprehensive LAB 01/22/24 Verified Metabolic Panel 04:00 Condition: Serious SUSSY 01/21/24 In Process 02:54 Acetaminophen Tablet PHA 01/21/24 In Process (Tylenol Tablet) 03:00 Clear Liq Diet DIET 01/21/24 Transmitted Breakfast Bedrest With Bathroom SUSSY 01/21/24 In Process Privileg 02:54 Sequential SUSSY 01/21/24 In Process Compression Device Pantoprazole PHA 01/21/24 In Process (Protonix) 10:00 Admit ADMIT 01/21/24 Verified 03:42 Nitroglycerin [facility] 01/21/24 Verified Sublingual (Ntrostat 03:45 Morphine Sulfate PHA 01/21/24 Verified Injection 03:45 Notify Md Of Changes [facility] 01/21/24 Verified From Base 03:42 Emergency Dysrhythmia [facility] 01/21/24 Verified Protocol 03:42 Oxygen By Nasal RT 01/21/24 Verified Cannula 03:42 Problem List: (1) Acute pancreatitis (2) Splenomegaly (3) Hepatomegaly (4) Hypertensive urgency (5) Acute abdominal pain (6) Mesenteric adenitis (7) Elevated liver enzymes Date of Service: Jan 21, 2024 Billing Provider: FREDDY EDWARDS DNP Common Visit Codes: [id number] INP/OBS CARE (HIGH) FREDDY EDWARDS DNP Jan 21, 2024 03:44
[2024-01-21] MEDS ORDERED: MORPHINE SULFATE INJ 2 MG/ml SYRG IV PRN (03:45)
[2024-01-21] MEDS ORDERED: NITROGLYCERIN 0.4 MG SL TAB SL PRN (03:45)
[2024-01-21 04:00] VITALS: PULSE 79; RESP 18; O2SAT 95
[2024-01-21] MEDS: cloNIDine HCL 0.1 MG TAB PO ONE (04:22)
[2024-01-21] MEDS: ONDANSETRON ODT 4 MG TAB PO ONE (04:22)
[2024-01-21] MEDS: HYDROmorphone HCL 2 MG/ML VL/or syr IM ONE (04:22)
[2024-01-21] MEDS: ONDANSETRON HCL 4 MG/2 ML VIAL IV PRN (04:25)
[2024-01-21] MEDS: HYDROmorphone HCL 2 MG/ML VL/or syr IV PRN (04:26)
[2024-01-21] MEDS: SODIUM CHLORIDE 0.9% 1,000 ML IV SCH (04:34)
[2024-01-21] MEDS: InsuLIN REG 1unit/0.01ml Soln (100units/ml) SC SCH ×2 (06:46→21:57)
[2024-01-21] MEDS: ACCU-CHEK COMFORT CURVE STRIP VI SCH (06:46)
[2024-01-21 09:39] LABS: Basophils # (auto) 0 10 ^3/uL (0-0.2); Basophils % (auto) 0.3 % (0.0-2.0); Eosinophils # (auto) 0.3 10 ^3/uL (0-0.8); Eosinophils % (auto) 4.8 % (0.0-7.0); Hematocrit 47.5 % (41.0-53.0); Hemoglobin 16.5 g/dL (13.5-17.5); Lymphocytes # (auto) 2.3 10 ^3/uL (0.4-5.4); Lymphocytes % (auto) 36.7 % (10.0-50.0); Mean Corpuscular Hemoglobin 31.4 pg (28.0-32.0); Mean Corpuscular Hgb Conc. 34.7 g/dL (32.0-36.0); Mean Corpuscular Volume 90.6 fL (80.0-100.0); Monocytes # (auto) 0.4 10 ^3/uL (0-1.3); Monocytes % (auto) 7.2 % (0.0-12.0); Neutrophils # (auto) 3.2 10 ^3/uL (1.6-8.6); Nucleated Red Blood Cells % 0.1 %; Platelet Count (auto) 204 10^3/uL (140-450); Red Blood Cells 5.25 10^6/uL (4.5-5.90); Red Cell Distribution Width 13.7 % (11.8-14.3); White Blood Cell 6.2 10^3/uL (4.4-10.8)
[2024-01-21] MEDS: IBUPROFEN 600 MG TAB PO PRN (09:40)
[2024-01-21 09:43] VITALS: PULSE 72; RESP 17; O2SAT 97
[2024-01-21 09:58] LABS: Albumin 4.7 g/dL (3.2-4.8); Alkaline Phosphatase 69 U/L (46-116); Anion Gap 6 (5-15); BUN/Creatinine Ratio 14.5 (10.0-20.0); Blood Urea Nitrogen 12 mg/dL (9-23); Carbon Dioxide 28 mmol/L (20-31); Chloride 105 mmol/L (98-107); Sodium 139 mmol/L (136-145)
[2024-01-21 09:59] LABS: Bilirubin, Total 0.5 mg/dL (0.2-1.0); Total Protein 7.8 g/dL (5.7-8.2)
[2024-01-21 10:00] LABS: Alanine Aminotransferase 260 U/L (7-40); Aspartate Aminotransferase 119 U/L (13-40); Glucose 116 mg/dL (74-106)
[2024-01-21] MEDS: PANTOPRAZOLE 40 MG/10 ML VIAL INJ IV SCH (10:24)
[2024-01-21] MEDS: METOPROLOL TARTRATE 25 MG TAB PO SCH (11:06)
--- NOTE | 2024-01-21 12:56 | DVHPN2 ---
Reviewed: Care Plan, H&P, Labs, Medications, Previous Orders, Radiology Changes from previous H/P or p: No Changes Eyes: No Pain, No Vision change, No Conjunctivae inflammation, No Eyelid inflammation, No Other, No Redness ENT: No Ear pain, No Ear discharge, No Nose pain, No Nose discharge, No Nose congestion, No Mouth pain, No Mouth swelling, No Throat pain, No Throat swelling, No Other Cardiovascular: No Chest Pain, No Palpitations, No Orthopnea, No Paroxysmal Noc. Dyspnea, No Edema, No Lt Headedness, No Other Respiratory: No Cough, No Dry, No Shortness of breath, No SOB with excertion, No Wheezing, No Hemoptysis, No Pleuritic Pain, No Sputum, No Other Gastrointestinal: No Nausea, No Vomiting; Abdominal Pain; No Diarrhea, No Constipation, No Melena, No Hematochezia, No Other Genitourinary: No Dysuria, No Frequency, No Incontinence, No Hematuria, No Retention, No Other Musculoskeletal: No other, No neck pain, No shoulder pain, No arm pain, No back pain, No hand pain, No leg pain, No foot pain Skin: No Rash, No Lesions, No Jaundice, No Bruising, No Other Objective Vitals Vital Signs Date Time Temp Pulse Resp B/P (MAP) Pulse Ox O2 Delivery O2 Flow Rate FiO2 01/21/24 11:55 61 128/83 01/21/24 11:07 17 97 01/21/24 11:01 98.3 01/21/24 09:43 Room Air* 0 21 Medications Current Medications Medications Dose Ordered Sig/Claudette Route Start Time Stop Time Status Last Admin Dose Admin Hydromorphone HCl 1 mg Q4HPRN PRN IV 01/21/24 03:00 01/21/24 04:26 1 MG Clonidine HCl 0.1 mg Q4HP PRN PO 01/21/24 03:00 Metoprolol Tartrate 25 mg BID PO 01/21/24 10:00 01/21/24 11:06 25 MG Ibuprofen 600 mg Q6HP PRN PO 01/21/24 03:00 01/21/24 09:40 600 MG Diagnostic Test (Pha) 1 strip ACHS 01/21/24 07:00 01/21/24 06:46 1 STRIP Insulin Human Regular HS SC 01/21/24 22:00 Insulin Human Regular AC SC 01/21/24 07:00 01/21/24 11:30 2 UNITS Dextrose 50 ml UD PRN IV 01/21/24 03:00 Sodium Chloride 1,000 ml @ 120 mls/hr Q8H20M IV 01/21/24 03:00 01/21/24 11:21 120 MLS/HR Acetaminophen/ Hydrocodone Bitart 1 tab Q4HP PRN PO 01/21/24 03:00 Ondansetron HCl 4 mg Q4HP PRN IV 01/21/24 03:00 01/21/24 04:25 4 MG Docusate Sodium 100 mg BIDPRN PRN PO 01/21/24 03:00 Pantoprazole Sodium 40 mg DAILY IV 01/21/24 10:00 01/21/24 10:24 40 MG Nitroglycerin 0.4 mg Q5MINP PRN SL 01/21/24 03:45 Morphine Sulfate 2 mg Q30M PRN IV 01/21/24 03:45 Laboratory Results Laboratory Tests 01/21/24 08:53 Chemistry Test 01/20/24 21:27 01/21/24 08:53 Albumin 4.7 g/dL (3.2-4.8) 4.7 g/dL (3.2-4.8) Calcium Level 10.0 mg/dL (8.7-10.4) 10.0 mg/dL (8.7-10.4) Total Protein 7.8 g/dL (5.7-8.2) 7.8 g/dL (5.7-8.2) Lipid panel Test 01/20/24 21:27 Lipase 110 U/L (12-53) H LFT Test 01/20/24 21:27 01/21/24 08:53 Alanine Aminotransferase (ALT) 238 U/L (7-40) H 260 U/L (7-40) H Alkaline Phosphatase 79 U/L (46-116) 69 U/L (46-116) Aspartate Amino Transferase (AST) 101 U/L (13-40) H 119 U/L (13-40) H Total Bilirubin 0.3 mg/dL (0.2-1.0) 0.5 mg/dL (0.2-1.0) Urinalysis Test 01/20/24 21:18 Urine Color Yellow (Yellow) Urine Clarity Clear (Clear) Urine pH 5.5 (5.0-9.0) Urine Specific [place] 1.039 (1.001-1.035) Urine Protein 1+ (Negative) H Urine Ketones Trace (Negative) Urine Blood Negative /uL (Negative) Urine Nitrite Negative (Negative) Urine Bilirubin Negative (Negative) Urine Urobilinogen Normal mg/dL (Negative) Urine Leukocyte Esterase Negative /uL (Negative) Urine RBC 1 /hpf (0 - 3) Urine WBC 1 /hpf (0 - 3) Urine Squamous Epithelial Cells None seen /hpf (<5) Urine Calcium Oxalate Crystals Few (None Seen) Urine Bacteria None seen /hpf (None Seen) Urine Mucus Few (None Seen) Urine Glucose 1+ mg/dL (Normal) H Labs and/or images reviewed: Labs reviewed by me, Image(s) reviewed by me Assessment/Plan Assessment/Plan Acute abdominal pain Acute pancreatitis lipase 110 Hepatomegaly: Gallbladder ultrasound Elevated liver enzymes: Hepatitis panel, GI consult for Dr. Campbell Diabetes Hypertension Time spent 40 minutes Patient is full code Advanced care planning time 20 minutes Plan discussed with: Patient My Orders Orders - ANTONY RODRIGUEZ MD Procedure Category Date Status Time Gallbladder US 01/21/24 Logged 12:52 Comprehensive LAB 01/21/24 Transmitted Hepatitis Panel 12:53 Date of Service: Jan 21, 2024 Billing Provider: ANTONY RODRIGUEZ MD Common Visit Codes: [id number] INP/OBS CARE(HIGH) Secondary Visit Codes: [id number] CARE PLAN 30 MINUTES ANTONY RODRIGUEZ MD Jan 21, 2024 12:56
--- NOTE | 2024-01-21 13:32 | DVHINCON2 ---
Date of service: Jan 21, [address] Sullivan Reason for Consultation Severe abdominal pain radiating to the back History of Present Illness This 33-year-old male presented with complaints of abdominal pain which was sharp in the epigastric area and periumbilically radiating to the back He was in the ER three days ago for the same problem and few hours and then was sent home the details of which he can not remember patient has history of obesity diabetes and hypertension Patient's liver enzymes were found to be high Done without any contrast showed that there was mildly enlarged mesenteric lymph nodes and soft tissue stranding stranding about the central mesentery normal appendix normal pancreas any gallbladder and liver except for some mild hepatomegaly Mild nausea but no hematemesis or melena Past Medical History Diabetes hypertension mild obesity Past Surgical History None Family History Noncontributory Social History Some social drinking and smoking uses marijuana Allergies: Coded Allergies: NO KNOWN ALLERGIES (Unverified , 09/20/23) Home Meds Active Scripts Hydrocodone-Acetaminophen (Hydrocodone Bitartrate/AC 5-325 mg) 1 Tab Tab, 1 TAB PO Q8HP PRN for 5 Days, #15 TAB Prov:CHRIS MENJIVAR MD 01/10/24 Ondansetron Odt 4MG Tab (ZOFRAN PO) 4 Mg Tb, 4 MG PO Q8HP PRN for 5 Days, #15 TAB ODT TAB-DISSOLVE IN MOUTH, THEN SWALLOW Prov:CHRIS MENJIVAR MD 09/20/23 Pantoprazole Sodium Sesquihydr (Protonix) 40 Mg Tab, 40 MG PO DAILY, #30 TAB Prov:CHRIS MENJIVAR MD 09/20/23 Current Medications Current Medications Medications (Trade) Dose Ordered Sig/Claudette Route PRN Reason Start Time Stop Time Status Last Admin Hydromorphone HCl (Dilaudid Injection) 1 mg Q4HPRN PRN IV SEVERE PAIN (7-10 PAIN SCALE) 01/21/24 03:00 01/21/24 04:26 Clonidine HCl (Catapres Tablet) 0.1 mg Q4HP PRN PO SBP>150 01/21/24 03:00 Metoprolol Tartrate (Lopressor Tablet) 25 mg BID PO 01/21/24 10:00 01/21/24 11:06 Ibuprofen (Motrin Tablet) 600 mg Q6HP PRN PO PAIN SCALE 1-3 OR TEMP>100.4 01/21/24 03:00 01/21/24 09:40 Diagnostic Test (Pha) (Accu-Chek Comfort Curve T) 1 strip ACHS 01/21/24 07:00 01/21/24 06:46 Insulin Human Regular (InsuLIN R) HS SC 01/21/24 22:00 Insulin Human Regular (InsuLIN R) AC SC 01/21/24 07:00 01/21/24 11:30 Dextrose 50 ml UD PRN IV Blood Sugar LESS THAN 60 01/21/24 03:00 Sodium Chloride 1,000 ml @ 120 mls/hr Q8H20M IV 01/21/24 03:00 01/21/24 11:21 Acetaminophen/ Hydrocodone Bitart ([place] 5/325MG Tab) 1 tab Q4HP PRN PO MODERATE PAIN (4-6 PAIN SCALE) 01/21/24 03:00 Ondansetron HCl (Zofran) 4 mg Q4HP PRN IV NAUSEA / VOMITING 01/21/24 03:00 01/21/24 04:25 Docusate Sodium (Colace Capsule) 100 mg BIDPRN PRN PO FOR CONSTIPATION 01/21/24 03:00 Acetaminophen (Tylenol Tablet) 650 mg Q6HP PRN PO PAIN SCALE 1-3 OR TEMP>100.4 01/21/24 03:00 01/21/24 05:37 DC Pantoprazole Sodium (Protonix) 40 mg DAILY IV 01/21/24 10:00 01/21/24 10:24 Nitroglycerin (Ntrostat Sublingual) 0.4 mg Q5MINP PRN SL FOR CHEST PAIN 01/21/24 03:45 Morphine Sulfate 2 mg Q30M PRN IV FOR CHEST PAIN 01/21/24 03:45 Review of Systems Noncontributory Vital Signs Vital Signs Date Time Temp Pulse Resp B/P (MAP) Pulse Ox O2 Delivery O2 Flow Rate FiO2 01/21/24 13:02 97.7 73 16 134/65 (88) 97 97.7 01/21/24 09:43 Room Air* 0 21 Physical Exam Moderately built and nourished slightly on the obese side male in no acute distress but uncomfortable from the pain Vitals stable HEENT exam no pallor no icterus Neck is supple no lymphadenopathy no thyromegaly Lungs clear Cardiovascular unremarkable Abdomen soft slightly on the obese side Mild tenderness in the epigastrium and periumbilically no rigidity no guarding no masses Extremities unremarkable Neuro grossly intact Labs AST 101 ALT 238 alkaline phosphatase normal BUN is 14 creatinine is 1.04 lipase is increased to [address] showed moderate steatosis of the liver hepatomegaly splenomegaly and some nonspecific mesenteric lymphadenitis Labs/Diagnostic Data Labs Test 01/21/24 11:24 01/21/24 08:53 01/20/24 21:27 01/20/24 21:18 Range/Units POC Glucose 139 H 70-106 mg/dl White Blood Count 6.2 4.4-10.8 10^3/uL Red Blood Count 5.25 4.5-5.90 10^6/uL Hemoglobin 16.5 13.5-17.5 g/dL Hematocrit 47.5 41.0-53.0 % Mean Corpuscular Volume 90.6 80.0-100.0 fL Mean Corpuscular Hemoglobin 31.4 28.0-32.0 pg Mean Corpuscular Hemoglobin Concent 34.7 32.0-36.0 g/dL Red Cell Distribution Width 13.7 11.8-14.3 % Platelet Count 204 140-450 10^3/uL Mean Platelet Volume 8.4 6.9-10.8 fL Neutrophils (%) (Auto) 51.0 37.0-80.0 % Lymphocytes (%) (Auto) 36.7 10.0-50.0 % Monocytes (%) (Auto) 7.2 0.0-12.0 % Eosinophils (%) (Auto) 4.8 0.0-7.0 % Basophils (%) (Auto) 0.3 0.0-2.0 % Neutrophils # (Auto) 3.2 1.6-8.6 10 ^3/uL Lymphocytes # (Auto) 2.3 0.4-5.4 10 ^3/uL Monocytes # (Auto) 0.4 0-1.3 10 ^3/uL Eosinophils # (Auto) 0.3 0-0.8 10 ^3/uL Basophils # (Auto) 0 0-0.2 10 ^3/uL Nucleated Red Blood Cells 0.1 % Sodium Level 139 136-145 mmol/L Potassium Level 4.0 3.5-5.1 mmol/L Chloride Level 105 98-107 mmol/L Carbon Dioxide Level 28 20-31 mmol/L Anion Gap 6 5-15 Blood Urea Nitrogen 12 9-23 mg/dL Creatinine 0.83 0.700-1.30 mg/dL Glomerular Filtration Rate Calc 118 >90 mL/min BUN/Creatinine Ratio 14.5 10.0-20.0 Serum Glucose 116 H 74-106 mg/dL Calcium Level 10.0 8.7-10.4 mg/dL Total Bilirubin 0.5 0.2-1.0 mg/dL Aspartate Amino Transferase (AST) 119 H 13-40 U/L Alanine Aminotransferase (ALT) 260 H 7-40 U/L Alkaline Phosphatase 69 46-116 U/L Total Protein 7.8 5.7-8.2 g/dL Albumin 4.7 3.2-4.8 g/dL Lactic Acid Level 1.2 0.4-2.0 mmol/L Troponin I High Sensitivity < 3 L </=54 ng/L Lipase 110 H 12-53 U/L Urine Color Yellow Yellow Urine Clarity Clear Clear Urine pH 5.5 5.0-9.0 Urine Specific [place] 1.039 H 1.001-1.035 Urine Protein 1+ H Negative Urine Ketones Trace Negative Urine Blood Negative Negative /uL Urine Nitrite Negative Negative Urine Bilirubin Negative Negative Urine Urobilinogen Normal Negative mg/dL Urine Leukocyte Esterase Negative Negative /uL Urine RBC 1 0 - 3 /hpf Urine WBC 1 0 - 3 /hpf Urine Squamous Epithelial Cells None seen <5 /hpf Urine Calcium Oxalate Crystals Few None Seen Urine Bacteria None seen None Seen /hpf Urine Mucus Few None Seen Urine Glucose 1+ H Normal mg/dL Assessment 33-year-old obese male with history diabetes and hypertension presented with severe abdominal pain nausea no vomiting or hematemesis physical examination tenderness in the epigastrium labs showed that the ALT AST are increased lipase is increased bilirubin and alk phos normal history of smoking and drinking moderately clinical impression Acute pancreatitis with abdominal pain Normal Liver enzymes hepatomegaly splenomegaly possible pancreatitis rule out biliary tract disease large stones in the bile duct Possible hepatic steatosis and steatohepatitis Plan/Recommendation will follow the labs liver enzymes as well as lipase will treat with PPIs and keep NPO for except for clear liquids may be if better will need an MRI MRCP as soon as possible to delineate the anatomy of the pancreatic and biliary system to ensure there was no CBD stones or other pathology Plan discussed with: Patient KEIRY STEWART MD Jan 21, 2024 13:32
--- NOTE | 2024-01-21 19:14 | DVH ---
INDICATION: Hepatomegaly TECHNIQUE: Multiple real-time sonographic images were obtained of the right upper quadrant. COMPARISON: None FINDINGS: The liver demonstrates increased echotexture without focal mass lesions. The liver measure s 22.4 cm. There is no intrahepatic or extrahepatic ductal dilatation. The common duct is not visualized. The gallbladder is without evidence of stone or sludge. The gallbladder wall measures 0.3 cm and is within normal limits. The right kidney measures 10.7 cm. The right kidney is normal in contour, size, and shape. The echo genicity is normal. There is no hydronephrosis. The pancreas is not well visualized due to overlying bowel gas. IMPRESSION: Hepatic steatosis and hepatomegaly.
[2024-01-21] MEDS: HYDROcodone-ACET 5/325MG TAB PO PRN (19:41)
[2024-01-21 19:58] VITALS: BP 114/71; PULSE 64; RESP 18; TEMP 98.1; O2SAT 99
[2024-01-21 20:00] VITALS: PULSE 64; RESP 18; O2SAT 99
[2024-01-21 21:00] VITALS: BP 112/70; PULSE 66; RESP 16; TEMP 97.5; O2SAT 99
[2024-01-22 01:00] VITALS: BP 100/59; PULSE 61; RESP 19; TEMP 98.3; O2SAT 98
[2024-01-22 05:00] VITALS: BP 118/73; PULSE 69; RESP 16; TEMP 98.1; O2SAT 98
--- NOTE | 2024-01-22 05:50 | ECG ---
[facility] Test Date: 2024-01-21 Test Time: 01:54:06 Pat Name: DOTTIE STARKEY Department: ED Room: 0216 Gender: M Patient Account Liaison: : 1990 Requested By: ANTHONY CHEN Order Number: [id number] Reading MD: Measurements Intervals [place] Rate: 87 P: 40 SD: 168 QRS: 84 QRSD: 86 T: -2 QT: 352 QTc: 424 Interpretive Statements Sinus rhythm Borderline T abnormalities, inferior leads Borderline ST elevation, lateral leads Please click the below link to view image of tracing.
[2024-01-22 07:01] LABS: Albumin 4.1 g/dL (3.2-4.8); Alkaline Phosphatase 61 U/L (46-116); Anion Gap 7 (5-15); BUN/Creatinine Ratio 11.1 (10.0-20.0); Bilirubin, Total 0.6 mg/dL (0.2-1.0); Blood Urea Nitrogen 11 mg/dL (9-23); Calcium 9.9 mg/dL (8.7-10.4); Carbon Dioxide 27 mmol/L (20-31); Chloride 105 mmol/L (98-107); Potassium 4.1 mmol/L (3.5-5.1); Sodium 139 mmol/L (136-145); Total Protein 7.1 g/dL (5.7-8.2)
[2024-01-22 07:04] LABS: Alanine Aminotransferase 326 U/L (7-40); Aspartate Aminotransferase 155 U/L (13-40); Glucose 121 mg/dL (74-106)
[2024-01-22 07:09] LABS: Basophils # (auto) 0 10 ^3/uL (0-0.2); Basophils % (auto) 0.4 % (0.0-2.0); Eosinophils # (auto) 0.2 10 ^3/uL (0-0.8); Eosinophils % (auto) 4.6 % (0.0-7.0); Hematocrit 46.3 % (41.0-53.0); Hemoglobin 16.2 g/dL (13.5-17.5); Lymphocytes # (auto) 1.6 10 ^3/uL (0.4-5.4); Lymphocytes % (auto) 29.8 % (10.0-50.0); Mean Corpuscular Hemoglobin 31.7 pg (28.0-32.0); Mean Corpuscular Hgb Conc. 34.9 g/dL (32.0-36.0); Mean Corpuscular Volume 90.6 fL (80.0-100.0); Monocytes # (auto) 0.4 10 ^3/uL (0-1.3); Neutrophils # (auto) 3.1 10 ^3/uL (1.6-8.6); Neutrophils % (auto) 58.2 % (37.0-80.0); Nucleated Red Blood Cells % 0.3 %; Platelet Count (auto) 195 10^3/uL (140-450); Red Blood Cells 5.11 10^6/uL (4.5-5.90); Red Cell Distribution Width 14.2 % (11.8-14.3); White Blood Cell 5.2 10^3/uL (4.4-10.8)
--- NOTE | 2024-01-22 08:18 | DVHPN2 ---
Reviewed: Care Plan, H&P, Labs, Medications, Previous Orders, Radiology Changes from previous H/P or p: No Changes Eyes: No Pain, No Vision change, No Conjunctivae inflammation, No Eyelid inflammation, No Other, No Redness ENT: No Ear pain, No Ear discharge, No Nose pain, No Nose discharge, No Nose congestion, No Mouth pain, No Mouth swelling, No Throat pain, No Throat swelling, No Other Cardiovascular: No Chest Pain, No Palpitations, No Orthopnea, No Paroxysmal Noc. Dyspnea, No Edema, No Lt Headedness, No Other Respiratory: No Cough, No Dry, No Shortness of breath, No SOB with excertion, No Wheezing, No Hemoptysis, No Pleuritic Pain, No Sputum, No Other Gastrointestinal: No Nausea, No Vomiting; Abdominal Pain; No Diarrhea, No Constipation, No Melena, No Hematochezia, No Other Genitourinary: No Dysuria, No Frequency, No Incontinence, No Hematuria, No Retention, No Other Musculoskeletal: No other, No neck pain, No shoulder pain, No arm pain, No back pain, No hand pain, No leg pain, No foot pain Skin: No Rash, No Lesions, No Jaundice, No Bruising, No Other Objective Vitals Vital Signs Date Time Temp Pulse Resp B/P (MAP) Pulse Ox O2 Delivery O2 Flow Rate FiO2 01/22/24 05:00 98.1 69 16 118/73 (88) 98 98.1 01/21/24 20:00 Room Air* 0 21 Intake/Output Intake and Output 01/22/24 06:59 Intake Total 880 ml Balance 880 ml Intake Oral 400 ml IV Total 480 ml # Voids 1 Medications Current Medications Medications Dose Ordered Sig/Claudette Route Start Time Stop Time Status Last Admin Dose Admin Hydromorphone HCl 1 mg Q4HPRN PRN IV 01/21/24 03:00 01/21/24 04:26 1 MG Clonidine HCl 0.1 mg Q4HP PRN PO 01/21/24 03:00 Metoprolol Tartrate 25 mg BID PO 01/21/24 10:00 01/21/24 21:55 25 MG Ibuprofen 600 mg Q6HP PRN PO 01/21/24 03:00 01/22/24 01:23 600 MG Diagnostic Test (Pha) 1 strip ACHS 01/21/24 07:00 01/22/24 05:55 1 STRIP Insulin Human Regular HS SC 01/21/24 22:00 Insulin Human Regular AC SC 01/21/24 07:00 01/22/24 05:59 2 UNITS Dextrose 50 ml UD PRN IV 01/21/24 03:00 Sodium Chloride 1,000 ml @ 120 mls/hr Q8H20M IV 01/21/24 03:00 01/21/24 19:41 120 MLS/HR Acetaminophen/ Hydrocodone Bitart 1 tab Q4HP PRN PO 01/21/24 03:00 01/21/24 19:41 1 TAB Ondansetron HCl 4 mg Q4HP PRN IV 01/21/24 03:00 01/21/24 04:25 4 MG Docusate Sodium 100 mg BIDPRN PRN PO 01/21/24 03:00 Pantoprazole Sodium 40 mg DAILY IV 01/21/24 10:00 01/21/24 10:24 40 MG Nitroglycerin 0.4 mg Q5MINP PRN SL 01/21/24 03:45 Morphine Sulfate 2 mg Q30M PRN IV 01/21/24 03:45 Laboratory Results Laboratory Tests 01/22/24 05:44 Chemistry Test 01/21/24 08:53 01/22/24 05:44 Albumin 4.7 g/dL (3.2-4.8) 4.1 g/dL (3.2-4.8) Calcium Level 10.0 mg/dL (8.7-10.4) 9.9 mg/dL (8.7-10.4) Total Protein 7.8 g/dL (5.7-8.2) 7.1 g/dL (5.7-8.2) Lipid panel Test 01/22/24 05:44 Lipase Pending LFT Test 01/21/24 08:53 01/22/24 05:44 Alanine Aminotransferase (ALT) 260 U/L (7-40) H 326 U/L (7-40) H Alkaline Phosphatase 69 U/L (46-116) 61 U/L (46-116) Aspartate Amino Transferase (AST) 119 U/L (13-40) H 155 U/L (13-40) H Total Bilirubin 0.5 mg/dL (0.2-1.0) 0.6 mg/dL (0.2-1.0) Urinalysis Test 01/20/24 21:18 Urine Color Yellow (Yellow) Urine Clarity Clear (Clear) Urine pH 5.5 (5.0-9.0) Urine Specific [place] 1.039 (1.001-1.035) Urine Protein 1+ (Negative) H Urine Ketones Trace (Negative) Urine Blood Negative /uL (Negative) Urine Nitrite Negative (Negative) Urine Bilirubin Negative (Negative) Urine Urobilinogen Normal mg/dL (Negative) Urine Leukocyte Esterase Negative /uL (Negative) Urine RBC 1 /hpf (0 - 3) Urine WBC 1 /hpf (0 - 3) Urine Squamous Epithelial Cells None seen /hpf (<5) Urine Calcium Oxalate Crystals Few (None Seen) Urine Bacteria None seen /hpf (None Seen) Urine Mucus Few (None Seen) Urine Glucose 1+ mg/dL (Normal) H Labs and/or images reviewed: Labs reviewed by me, Image(s) reviewed by me Assessment/Plan Assessment/Plan Acute abdominal pain Acute alcoholic pancreatitis lipase 110, GI consult by Dr. Campbell appreciated, MRCP pending Hepatomegaly: Gallbladder ultrasound Elevated liver enzymes: Hepatitis panel, Diabetes Hypertension Chronic current alcohol abuse banana bag counselling Hepatitis panel pending Time spent 40 minutes Patient is full code Plan discussed with: Patient My Orders Orders - ANTONY RODRIGUEZ MD Procedure Category Date Status Time Gallbladder US 01/21/24 Resulted 12:52 Comprehensive LAB 01/21/24 In Process Hepatitis Panel 12:53 * [facility] [employer] CONS 01/21/24 Transmitted 12:53 Drug Screen LAB 01/21/24 Logged 12:56 Lipase LAB 01/22/24 In Process 08:07 Mrcp Mri MRI 01/22/24 Verified 08:10 Date of Service: Jan 22, 2024 Billing Provider: ANTONY RODRIGUEZ MD Common Visit Codes: [id number] INP/OBS CARE(HIGH) ANTONY RODRIGUEZ MD Jan 22, 2024 08:18
[2024-01-22 09:00] VITALS: BP 137/86; PULSE 77; RESP 16; TEMP 97.9; O2SAT 95
--- NOTE | 2024-01-22 09:13 | DVH ---
MRCP WITHOUT CONTRAST CLINICAL HISTORY: Acute pancreatitis ruled out CBD stone TECHNIQUE: [Technique] Multiplanar, multisequence MRCP and MR images of the abdomen without contrast. 3D MRCP was performed using maximum intensity projection reconstruction on an independent workstation under concurrent supervision. Comparison: CT abdomen 01/20/2024 FINDINGS: Gallbladder appears within normal limits without evidence of gallstones. There is no intrahepatic or extrahepatic biliary ductal dilatation. There is no pancreatic ductal dilatation. There is diffuse fatty infiltration of the liver. There is no suspicious appearing hepatic lesion. There is a subcentimeter cortical cyst in the lower pole of the right kidney. The kidneys otherwise a ppear within normal limits without evidence of hydronephrosis. The spleen,, pancreas, adrenal glands appear within normal limits.. There is no free fluid or free ai r. The visualized small and large bowel loops demonstrate normal caliber. The lung bases are clear. The osseous structures and soft tissues appear within normal limits. IMPRESSION: 1. The gallbladder appears within normal limits without evidence of gallstones. There is no intrahepa tic or extrahepatic biliary ductal dilatation. 2. Hepatic steatosis. 3. Subcentimeter right lower pole renal cyst. HS:Y
[2024-01-22] MEDS: chlordiazePOXIDE HCL 25 MG CAP PO SCH (09:50)
[2024-01-22 09:55] LABS: Hepatitis B Core Total AB Negative (Negative)
[2024-01-22 11:47] LABS: Hepatitis B Surface Antibody Positive (Negative); Hepatitis B Surface Antigen Negative (Negative); Hepatitis C Antibody Negative (Negative)
[2024-01-22 11:48] LABS: Hepatitis A Total Antibody Positive (Negative)
[2024-01-22 12:54] VITALS: BP 112/72; PULSE 77; RESP 18; TEMP 97.7; O2SAT 96
[2024-01-22 17:00] VITALS: BP 128/67; PULSE 70; RESP 16; TEMP 98.4; O2SAT 97
[2024-01-22] MEDS: FOLIC ACID 1 MG, MULTIPLE VITAMIN 10 ML, MAGNESIUM SULF SDV 50% 8 MEQ, THIAMINE INJ 100... INJ SCH (17:56)
[2024-01-22 21:00] VITALS: BP 129/68; PULSE 60; RESP 18; TEMP 98; O2SAT 97
[2024-01-23 01:00] VITALS: BP 105/60; PULSE 74; RESP 17; TEMP 98.2; O2SAT 98
[2024-01-23 05:00] VITALS: BP 111/43; PULSE 59; RESP 17; TEMP 98.1; O2SAT 99
[2024-01-23 08:00] VITALS: PULSE 68
[2024-01-23 09:00] VITALS: BP 120/81; PULSE 68; RESP 20; TEMP 97.5; O2SAT 94
--- NOTE | 2024-01-23 09:16 | DVHPN2 ---
Reviewed: Care Plan, H&P, Labs, Medications, Previous Orders, Radiology Changes from previous H/P or p: No Changes Eyes: No Pain, No Vision change, No Conjunctivae inflammation, No Eyelid inflammation, No Other, No Redness ENT: No Ear pain, No Ear discharge, No Nose pain, No Nose discharge, No Nose congestion, No Mouth pain, No Mouth swelling, No Throat pain, No Throat swelling, No Other Cardiovascular: No Chest Pain, No Palpitations, No Orthopnea, No Paroxysmal Noc. Dyspnea, No Edema, No Lt Headedness, No Other Respiratory: No Cough, No Dry, No Shortness of breath, No SOB with excertion, No Wheezing, No Hemoptysis, No Pleuritic Pain, No Sputum, No Other Gastrointestinal: No Nausea, No Vomiting; Abdominal Pain; No Diarrhea, No Constipation, No Melena, No Hematochezia, No Other Genitourinary: No Dysuria, No Frequency, No Incontinence, No Hematuria, No Retention, No Other Musculoskeletal: No other, No neck pain, No shoulder pain, No arm pain, No back pain, No hand pain, No leg pain, No foot pain Skin: No Rash, No Lesions, No Jaundice, No Bruising, No Other Objective Vitals Vital Signs Date Time Temp Pulse Resp B/P (MAP) Pulse Ox O2 Delivery O2 Flow Rate FiO2 01/23/24 09:00 97.5 68 20 120/81 (94) 94 97.5 01/22/24 20:00 Room Air* 0 21 Intake/Output Intake and Output 01/23/24 07:00 Intake Total 2958.2 ml Balance 2958.2 ml Intake Oral 825 ml IV Total 2133.2 ml # Voids 3 # Bowel Movements 2 Medications Current Medications Medications Dose Ordered Sig/Claudette Route Start Time Stop Time Status Last Admin Dose Admin Hydromorphone HCl 1 mg Q4HPRN PRN IV 01/21/24 03:00 01/21/24 04:26 1 MG Clonidine HCl 0.1 mg Q4HP PRN PO 01/21/24 03:00 Metoprolol Tartrate 25 mg BID PO 01/21/24 10:00 01/22/24 22:14 25 MG Ibuprofen 600 mg Q6HP PRN PO 01/21/24 03:00 01/22/24 01:23 600 MG Diagnostic Test (Pha) 1 strip ACHS 12/8/24 07:00 01/23/24 06:53 1 STRIP Insulin Human Regular HS SC 01/21/24 22:00 01/22/24 22:16 2 UNITS Insulin Human Regular AC SC 01/21/24 07:00 01/22/24 05:59 2 UNITS Dextrose 50 ml UD PRN IV 01/21/24 03:00 Sodium Chloride 1,000 ml @ 120 mls/hr Q8H20M IV 01/21/24 03:00 01/23/24 05:10 120 MLS/HR Acetaminophen/ Hydrocodone Bitart 1 tab Q4HP PRN PO 01/21/24 03:00 01/21/24 19:41 1 TAB Ondansetron HCl 4 mg Q4HP PRN IV 01/21/24 03:00 01/21/24 04:25 4 MG Docusate Sodium 100 mg BIDPRN PRN PO 01/21/24 03:00 Pantoprazole Sodium 40 mg DAILY IV 01/21/24 10:00 01/22/24 09:50 40 MG Nitroglycerin 0.4 mg Q5MINP PRN SL 01/21/24 03:45 Morphine Sulfate 2 mg Q30M PRN IV 01/21/24 03:45 Folic Acid 1 mg/ Multivitamins 10 ml/Magnesium Sulfate 8 meq/ Thiamine HCl 100 mg/Dextrose 1,013.2 ml @ 125.001 mls/hr DAILY@1800 INJ 01/22/24 18:00 01/22/24 17:56 125.001 MLS/HR Chlordiazepoxide HCl 50 mg Q12HR PO 01/23/24 10:00 01/23/24 22:01 Chlordiazepoxide HCl 25 mg Q12HR PO 01/24/24 10:00 01/24/24 22:01 Chlordiazepoxide HCl 25 mg QAM PO 01/25/24 07:00 01/25/24 07:01 Laboratory Results Laboratory Tests 01/22/24 05:44 Urinalysis Test 01/20/24 21:18 Urine Color Yellow (Yellow) Urine Clarity Clear (Clear) Urine pH 5.5 (5.0-9.0) Urine Specific [place] 1.039 (1.001-1.035) Urine Protein 1+ (Negative) H Urine Ketones Trace (Negative) Urine Blood Negative /uL (Negative) Urine Nitrite Negative (Negative) Urine Bilirubin Negative (Negative) Urine Urobilinogen Normal mg/dL (Negative) Urine Leukocyte Esterase Negative /uL (Negative) Urine RBC 1 /hpf (0 - 3) Urine WBC 1 /hpf (0 - 3) Urine Squamous Epithelial Cells None seen /hpf (<5) Urine Calcium Oxalate Crystals Few (None Seen) Urine Bacteria None seen /hpf (None Seen) Urine Mucus Few (None Seen) Urine Glucose 1+ mg/dL (Normal) H Labs and/or images reviewed: Labs reviewed by me, Image(s) reviewed by me Assessment/Plan Assessment/Plan Acute abdominal pain Acute alcoholic pancreatitis lipase 110, GI consult by Dr. 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
[2024-01-23] MEDS ORDERED: FOLI-119 PO (09:19)
[2024-01-23] MEDS ORDERED: THIA100T13 PO (09:19)
[2024-01-23] MEDS ORDERED: MULT1TAB95 PO (09:19)
[2024-01-23] MEDS ORDERED: CHL25C PO (09:19)
[2024-01-23] MEDS ORDERED: PANT40T PO (09:19)
--- NOTE | 2024-01-23 09:30 | DVHDS2 ---
Discharge Summary Date of Admission Jan 21, 2024 at 03:42 Date of Discharge: Jan 23, 2024 Admitting Diagnosis Acute abdominal pain Wounds: None Labs/Diagnostic Data: Laboratory Results Test 01/23/24 06:28 01/22/24 05:44 01/21/24 15:02 01/21/24 08:53 POC Glucose 117 mg/dl (70-106) White Blood Count 5.2 10^3/uL (4.4-10.8) Red Blood Count 5.11 10^6/uL (4.5-5.90) Hemoglobin 16.2 g/dL (13.5-17.5) Hematocrit 46.3 % (41.0-53.0) Mean Corpuscular Volume 90.6 fL (80.0-100.0) Mean Corpuscular Hemoglobin 31.7 pg (28.0-32.0) Mean Corpuscular Hemoglobin Concent 34.9 g/dL (32.0-36.0) Red Cell Distribution Width 14.2 % (11.8-14.3) Platelet Count 195 10^3/uL (140-450) Mean Platelet Volume 8.5 fL (6.9-10.8) Neutrophils (%) (Auto) 58.2 % (37.0-80.0) Lymphocytes (%) (Auto) 29.8 % (10.0-50.0) Monocytes (%) (Auto) 7.0 % (0.0-12.0) Eosinophils (%) (Auto) 4.6 % (0.0-7.0) Basophils (%) (Auto) 0.4 % (0.0-2.0) Neutrophils # (Auto) 3.1 10 ^3/uL (1.6-8.6) Lymphocytes # (Auto) 1.6 10 ^3/uL (0.4-5.4) Monocytes # (Auto) 0.4 10 ^3/uL (0-1.3) Eosinophils # (Auto) 0.2 10 ^3/uL (0-0.8) Basophils # (Auto) 0 10 ^3/uL (0-0.2) Nucleated Red Blood Cells 0.3 % Sodium Level 139 mmol/L (136-145) Potassium Level 4.1 mmol/L (3.5-5.1) Chloride Level 105 mmol/L (98-107) Carbon Dioxide Level 27 mmol/L (20-31) Anion Gap 7 (5-15) Blood Urea Nitrogen 11 mg/dL (9-23) Creatinine 0.99 mg/dL (0.700-1.30) Glomerular Filtration Rate Calc 103 mL/min (>90) BUN/Creatinine Ratio 11.1 (10.0-20.0) Serum Glucose 121 mg/dL (74-106) Calcium Level 9.9 mg/dL (8.7-10.4) Total Bilirubin 0.6 mg/dL (0.2-1.0) Aspartate Amino Transferase (AST) 155 U/L (13-40) Alanine Aminotransferase (ALT) 326 U/L (7-40) Alkaline Phosphatase 61 U/L (46-116) Total Protein 7.1 g/dL (5.7-8.2) Albumin 4.1 g/dL (3.2-4.8) Lipase 110 U/L (12-53) Plasma/Serum Blood Alcohol < 3.0 mg/dL (<10) Hepatitis A Antibody Total Positive (Negative) Hepatitis B Surface Antigen Negative (Negative) Hepatitis B Surface Antibody Positive (Negative) Hepatitis B Core Total Antibody Negative (Negative) Hepatitis C Antibody Negative (Negative) Test 01/20/24 21:27 01/20/24 21:18 Lactic Acid Level 1.2 mmol/L (0.4-2.0) Troponin I High Sensitivity < 3 ng/L (</=54) Urine Color Yellow (Yellow) Urine Clarity Clear (Clear) Urine pH 5.5 (5.0-9.0) Urine Specific [place] 1.039 (1.001-1.035) Urine Protein 1+ (Negative) Urine Ketones Trace (Negative) Urine Blood Negative /uL (Negative) Urine Nitrite Negative (Negative) Urine Bilirubin Negative (Negative) Urine Urobilinogen Normal mg/dL (Negative) Urine Leukocyte Esterase Negative /uL (Negative) Urine RBC 1 /hpf (0 - 3) Urine WBC 1 /hpf (0 - 3) Urine Squamous Epithelial Cells None seen /hpf (<5) Urine Calcium Oxalate Crystals Few (None Seen) Urine Bacteria None seen /hpf (None Seen) Urine Mucus Few (None Seen) Urine Glucose 1+ mg/dL (Normal) Other Laboratory Tests 01/22/24 05:44 Brief Hx & Hospital Course: 33-year-old chronic alcoholic came in complaining of abdominal pain with nausea found to have acute pancreatitis lipase 110 treated with the pain medications IV fluids. Patient was treated with a banana bag for his alcohol abuse and Librium for withdrawal gallbladder ultrasound negative for gallstones showed hepatic steatosis. MRCP showed no gallstones no CBD stones and no CBD dilatation seen by GI Dr. Campbell. 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 Discharged home. Prescription for pantoprazole Librium thiamine folic acid multivitamin transmitted to the pharmacy. He has an appointment to follow up with his primary Dr Vaughn next Monday Consults/Reason for consult GI Dr. Campbell Operations or Procedures CT abdomen pelvis without contrast MRCP Gallbladder ultrasound Condition at Discharge: Fair Final Diagnosis/Problems List Acute abdominal pain Acute alcoholic pancreatitis lipase 110, GI consult by Dr. 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 Vaughn next Mon (Time taken for discharge summary 39 minuteds) Discharge Statement: "Patient was advised to return to the ER or call 911 if any headaches, dizziness, shortness of breath, chest pain, abdominal pain, bleeding, fevers, or worsening of medical condition. Patient was counseled about treatment plan, medications, possible side effects, patientverbalized understanding. All questions were answered to the best of my ability. This discharge took greater then 30 minutes in planning, reviewing documentation, counseling the patient, and discussing with other team members." ASSESSMENT ASSESSMENT Hospital Course Improved Assessment Assessment/Plan Acute abdominal pain Acute alcoholic pancreatitis lipase 110, GI consult by Dr. 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
[2024-01-23] MEDS: chlordiazePOXIDE HCL 25 MG CAP PO SCH (09:39)
[2024-01-23] MEDS ORDERED: FOLIC ACID 1 MG TAB PO ONE (12:30)
[2024-01-23] MEDS ORDERED: THIAMINE HCL 100 MG TAB PO ONE (12:30)
[2024-01-23] MEDS ORDERED: MAGNESIUM OXIDE 400 MG TAB PO ONE (12:30)
[2024-01-23] MEDS ORDERED: MULTIPLE VITAMIN TAB PO ONE (12:30)
[2024-01-24] MEDS ORDERED: MAGNESIUM OXIDE 400 MG TAB PO SCH (10:00)
[2024-01-24] MEDS ORDERED: chlordiazePOXIDE HCL 25 MG CAP PO SCH (10:00)
[2024-01-24] MEDS ORDERED: THIAMINE HCL 100 MG TAB PO SCH (10:00)
[2024-01-24] MEDS ORDERED: FOLIC ACID 1 MG TAB PO SCH (10:00)
[2024-01-24] MEDS ORDERED: MULTIPLE VITAMIN TAB PO SCH (10:00)
[2024-01-25] MEDS ORDERED: chlordiazePOXIDE HCL 25 MG CAP PO SCH (07:00)
== END 2024-01-23 11:52 | disposition home or self-care (01) | DRG 440 ==
LOC: ER 21:02 → OVERFLOW 01-21 03:42 → CENTRAL 01-21 18:08
PROVIDERS: ADMIT Nurse Practitioner Family; ATTEND Family Medicine
DX: K85.20 Alcohol induced acute pancreatitis without necrosis or infection (principal); I88.0 Nonspecific mesenteric lymphadenitis; I16.0 Hypertensive urgency; E11.9 Type 2 diabetes mellitus without complications; F17.210 Nicotine dependence, cigarettes, uncomplicated; I10 Essential (primary) hypertension; K76.0 Fatty (change of) liver, not elsewhere classified; K80.70 Calculus of gallbladder and bile duct without cholecystitis without obstruction; F10.10 Alcohol abuse, uncomplicated; Z86.19 Personal history of other infectious and parasitic diseases; Z79.899 Other long term (current) drug therapy; Z79.4 Long term (current) use of insulin; Y90.9 Presence of alcohol in blood, level not specified
CPT/HCPCS: 36415; 74176; 74181; 76705; 80053; 80320; 81001; 82962; 83605; 83690; 84484; 85025; 86704; 86706; 86708; 86803; 87340; 93005; 96374; 96375; G0378; J1815; J2405; J2470